=== PATIENT | female | born 1995 | race Caucasian/White ===

== ENCOUNTER 2016-12-28 17:30 | Emergency (ER) | payer MEDICAID, OTHER ==
[~2016-12-28] VITALS: Ht 157.5 cm; Wt 77.5 kg
[~2016-12-28 17:30] MED LIST: PRENAT PO
[2016-12-28 17:31] VITALS: Ht 157.5 cm; Wt 77.5 kg
[2016-12-28] MEDS ORDERED: LIDOCAINE 1% (MDV) 20 ML INJ SC ONE (18:00)
[2016-12-28] MEDS ORDERED: BACI28.34 TOP (18:53)
--- NOTE | 2017-01-01 16:17 | ERD ---
ER Documentation Chief Complaint Date/Time DATE: 01/01/17 TIME: 16:15 Chief Complaint RIGHT INDEX LACERATON HPI This patient is a 21-year-old female presenting to the emergency department for right index finger laceration which occurred 25 minutes prior to arrival. The patient is right-hand dominant. The patient's tetanus is up-to-date. Bleeding was controlled after the accident occurred. She cut her finger with a kitchen knife. No fevers, chills, dizziness, or other symptoms to report currently. ROS All systems reviewed and are negative except as per history of present illness. Medications Home Meds Active Scripts Bacitracin* (Bacitracin Zinc Oint*) 28.35 Gm Oint, 1 APPLIC TOP BID for 5 Days, #1 TUB APPLI TO Prov:MORENITA COREAS PA-C 12/28/16 Reported Medications Multivit/Min/Fol Ac/Iron/Pren* ( S*) 1 Tab Tab, 1 TAB PO DAILY, TAB 10/08/15 Allergies Allergies: Coded Allergies: No Known Drug Allergies (Verified Allergy, Unknown, 10/08/15) PMhx/Soc Medical and Surgical Hx: pt denies Medical Hx, pt denies Surgical Hx Hx Alcohol Use: No Hx Substance Use: No Hx Tobacco Use: No Smoking Status: Never smoker Physical Exam Vitals Vital Signs Date Time Temp Pulse Resp B/P Pulse Ox O2 Delivery O2 Flow Rate FiO2 12/28/16 17:31 98.0 107 17 118/74 100 Physical Exam Const: The patient is resting comfortably in no acute distress. Head: Atraumatic Eyes: Normal Conjunctiva ENT: Normal External Ears, Nose and Mouth. Neck: Full range of motion..~ No meningismus. Resp: Clear to auscultation bilaterally Cardio: Regular rate and rhythm, no murmurs Abd: Soft, non tender, non distended. Normal bowel sounds Skin: There is an approximate 1 cm laceration to the right index finger with mild active bleeding but no signs of foreign body. Back: No midline or flank tenderness Ext: No cyanosis, or edema Neur: Awake and alert Psych: Normal Mood and Affect Results 24 hrs Current Medications Medications (Trade) Dose Ordered Sig/Abi Route PRN Reason Start Time Stop Time Status Last Admin Dose Admin Lidocaine (Xylocaine 1% (Mdv) 20 ml) 20 ml ONCE ONCE SC 12/28/16 18:00 12/28/16 18:01 DC Procedures/MDM Laceration Repair by me: Anesthesia: 1% lidocaine locally Location: Right index finger Tendon/Joint/Nerves: No injury Foreign body: None detected after copious irrigation and exploration Technique: Simple Interrupted Sutures Complexity: No subcutaneous sutures/mucosal repair/ edge excision Post Closure Length: 1 cm Patient's bleeding was easily controlled in the department and there is no indication of anemia. No evidence of compartment syndrome, neurologic injury, vascular injury, open joint, tendon laceration, or foreign body. Patient is appropriate for outpatient follow up. 48 hour wound check. Scar minimization instructions given. Departure Diagnosis: Primary Impression: Laceration Condition: Fair Patient Instructions: Laceration, All Referrals: [facility] YOU HAVE RECEIVED A MEDICAL SCREENING EXAM AND THE RESULTS INDICATE THAT YOU DO NOT HAVE A CONDITION THAT REQUIRES URGENT TREATMENT IN THE EMERGENCY DEPARTMENT. FURTHER EVALUATION AND TREATMENT OF YOUR CONDITION CAN WAIT UNTIL YOU ARE SEEN IN YOUR DOCTORS OFFICE WITHIN THE NEXT 1-2 DAYS. IT IS YOUR RESPONSIBILITY TO MAKE AN APPOINTMENT FOR FOLOW-UP CARE. IF YOU HAVE A PRIMARY DOCTOR --you should call your primary doctor and schedule an appointment IF YOU DO NOT HAVE A PRIMARY DOCTOR YOU CAN CALL OUR PHYSICIAN REFERRAL HOTLINE AT IF YOU CAN NOT AFFORD TO SEE A PHYSICIAN YOU CAN CHOSE FROM THE FOLLOWING [facility] [address] [facility] [facility] [address] [facility] [facility] [address] [facility] [facility] [address] [facility]. [facility] [address] [facility]. [facility]. [address] Additional Instructions: Please return in 48 hours for wound recheck. Please return in 7-10 days for suture removal. Follow up with your PCP within the next 1-3 days for a repeat evaluation and a possible referral to a specialist, if required. Return the the emergency department immediately if symptoms worsen or change. If you have any questions regarding medications, ask your pharmacist or us before you leave. If any adverse reactions, occur while taking your medications, discontinue the treatment and return to the emergency department immediately. If any new or worsening symptoms, uncontrolled fevers, or other unexplained symptoms occur, return to the emergency department immediately. Take your medications as directed, and complete the entire course of treatment. MORENITA COREAS PA-C January 01, 2017 16:17
== END 2016-12-28 19:01 | disposition home or self-care (01) ==
LOC: FTE 17:30
DX: S61.210A Laceration without foreign body of right index finger without damage to nail, initial encounter (principal); W26.0XXA Contact with knife, initial encounter; Y92.9 Unspecified place or not applicable
CPT/HCPCS: 12001; Z7502; Z7610

== ENCOUNTER 2017-01-08 16:15 | Emergency (ER) | payer OTHER ==
[~2017-01-08] VITALS: Ht 160 cm; Wt 72.5 kg
[~2017-01-08 16:15] MED LIST changes: +BACI28.34 TOP
[2017-01-08 16:20] VITALS: Ht 160 cm; Wt 72.5 kg
--- NOTE | 2017-01-08 16:51 | ERD ---
ER Documentation Chief Complaint Date/Time DATE: 01/08/17 TIME: 16:49 Chief Complaint FOR SUTURE REMOVAL ON RT INDEX FINGER HPI Is a 21-year-old female who presents to the emergency department today for suture removal of sutures that she had placed 11 days ago on her right index finger after cutting herself with a knife. States that she does not have any antibiotics. Denies any fevers or chills. ROS All systems reviewed and are negative except as per history of present illness. Medications Home Meds Active Scripts Bacitracin* (Bacitracin Zinc Oint*) 28.35 Gm Oint, 1 APPLIC TOP BID for 5 Days, #1 TUB APPLI TO Prov:MORENITA COREAS PA-C 12/28/16 Reported Medications Multivit/Min/Fol Ac/Iron/Pren* ( S*) 1 Tab Tab, 1 TAB PO DAILY, TAB 10/08/15 Allergies Allergies: Coded Allergies: No Known Drug Allergies (Verified Allergy, Unknown, 10/08/15) PMhx/Soc Hx Alcohol Use: No Hx Substance Use: No Hx Tobacco Use: No Physical Exam Vitals Vital Signs Date Time Temp Pulse Resp B/P Pulse Ox O2 Delivery O2 Flow Rate FiO2 01/08/17 16:20 97.8 75 16 110/54 99 Physical Exam Const: Pleasant no acute distress Head: Atraumatic Eyes: Normal Conjunctiva ENT: Normal External Ears, Nose and Mouth. Neck: Full range of motion..~ No meningismus. Resp: Clear to auscultation bilaterally Cardio: Regular rate and rhythm, no murmurs Skin: Evidence of 3 sutures placed right hand index finger. No erythema or warmth. No purulent drainage. Wound well-healed and well approximate it. Ext: Evidence of 3 sutures placed right hand index finger. Full active range of motion of finger. Pulses 2+. Distal neurovascular intact. Neur: Awake and alert Psych: Normal Mood and Affect Procedures/MDM This 21-year-old female who presents to the emergency department today for suture removal of sutures that she had placed on December 28, 2010 days ago. Patient was seen here in the E area of the emergency depart wound appears to be well-healed and well approximated. She has full active range of motion of her finger. There is no erythema or warmth. Patient is afebrile and otherwise well-appearing. Low suspicion for deep space infection sepsis, cellulitis. 3 sutures were removed. Patient tolerated the procedure well and there were no complications. Patient indicated that she had Neosporin cream at home. Steri- Strips are placed on the wound area. At this time the patient is stable for discharge and outpatient management. Patient should follow up with their PCP in the next 1-2 days. They may return to the emergency department sooner for any persistent or worsening of symptoms. Patient understood and agreed with the plan. Departure Diagnosis: Primary Impression: Encounter for removal of sutures Condition: Fair Patient Instructions: Suture Removal, No Complication Additional Instructions: Call your primary care doctor TOMORROW for an appointment during the next 1-2 days.See the doctor sooner or return here if your condition worsens before your appointment time. Use the Neosporin that you are already prescribed Keep wound clean EUNICE BRYANT PA-C January 08, 2017 16:51
== END 2017-01-08 16:49 | disposition home or self-care (01) ==
LOC: E/R 16:15
DX: Z48.02 Encounter for removal of sutures (principal)
CPT/HCPCS: 99281

== ENCOUNTER 2017-03-26 18:02 | Emergency (ER) | END 2017-03-26 20:11 | disposition home or self-care (01) | DX: S06.0X0A Concussion without loss of consciousness, initial encounter (principal); W22.8XXA Striking against or struck by other objects, initial encounter; Y92.9 Unspecified place or not applicable | CPT/HCPCS: 70450; Z7502 ==

== ENCOUNTER 2017-12-07 20:41 | Outpatient (CLI) | END 2017-12-08 01:36 | disposition home or self-care (01) ==